=== PATIENT | female | born 1970 | race African-American/Black ===

== ENCOUNTER → 2016-10-21 | Outpatient (CLI) | payer OTHER ==
[~2016-10-21] MED LIST: BACTRIM DS TABL1 TA1 PO; BACTRIM DS TABL1 TAB PO; HCTZ PO; IBUPROFEN PO; LORTAB 5/500 TA1 TA1 PO; PERCOCET5/325 PO; VICODIN 5/500 T1 TAB PO
--- NOTE | ~2016-10-21 | TM ---
[id number] NAME: DEE BAR MR#: [id number] PROCEDURE PERFORMED Treadmill stress test. DESCRIPTION Resting heart rate is 93. Resting blood pressure is 115/78 mmHg. Baseline EKG shows sinus rhythm. No significant ST-T wave changes. PROCEDURE The patient was made to exercise on a standard Franki protocol. Total exercise time is 7 minutes, completing 1 minute of stage 3 on a standard Franki protocol. Test stopped because target heart rate achieved. No complaints of chest pain or extreme shortness of breath. Maximal heart rate obtained is 164, which is 94% of maximum predicted heart rate. Maximal blood pressure obtained is 160/[address]-T wave changes suggestive of ischemia. No arrhythmias noted. CONCLUSION 1. Fair exercise tolerance for age. 2. There is no clinical, hemodynamic or EKG evidence of ischemia at moderate workload (10.1 METS, 94% of maximum predicted heart rate). 3. Normal heart rate and blood pressure response. 4. Normal regular treadmill stress test. Dictated by...
== END | disposition home or self-care (01) ==
LOC: CEKG 09:13
DX: R07.9 Chest pain, unspecified (principal)
CPT/HCPCS: 93017